=== PATIENT | female | born 1965 | race Caucasian/White ===

== ENCOUNTER 2022-05-09 16:06 | Outpatient (REF) | payer SELFPAY ==
[2022-05-09 14:45] LABS: Abs Immature Grans 0.02 10^3/uL (0.0-0.06); Absolute Basophil Count 0.04 10^3/uL (0.0-0.2); Absolute Eosinophil Count 0.18 10^3/uL (0.0-0.7); Absolute Lymphocyte Count 1.47 10^3/uL (1.2-3.4); Absolute Neutrophil Count 3.94 10^3/uL (1.2-6.7); Basophils % 0.6; Eosinophils % 2.9; HCT 40.5 % (36.0-46.0); HGB 13.7 g/dL (11.2-15.7); Immature Grans % 0.3; Lymphocytes % 23.5; MCHC 33.8 % (32.0-36.0); MCV 95 fL (80-95); MPV 11.7 fL (8.0-11.0); Monocytes % 9.6; Neutrophils % 63.1; Platelet Count 241 10^3/uL (130-400); RBC 4.28 10^6/uL (3.93-5.22); RDW 11.9 % (11.7-14.6); RDW-SD 41.5 fL; WBC 6.25 10^3/uL (4.4-10.8)
[2022-05-09 15:28] LABS: ALT 22 U/L (14-59); AST 22 U/L (15-37); Albumin 3.8 g/dL (3.4-5.0); Alkaline Phosphatase 63 U/L (46-116); Anion Gap 8.2 mmol/L (3-11); BUN 13 mg/dL (7-18); Bilirubin, Total 0.5 mg/dL (0.2-1.0); CO2 27.8 mmol/L (21.0-32.0); CREATININE 0.8 mg/dL (0.55-1.02); Calcium 9.2 mg/dL (8.5-10.1); Chloride 106 mmol/L (98-107); Glucose 95 mg/dL (74-106); Potassium 4.1 mmol/L (3.5-5.1); Sodium 142 mmol/L (136-145); Total Protein 7.1 g/dL (6.4-8.2)
[2022-05-10 11:43] LABS: IgA 205 mg/dL (85-499); Interpretation (See Note); Tissue Transglutaminase IgA <1.2 U/mL (<4.0)
== END 2022-05-09 16:07 | disposition home or self-care (01) ==
LOC: NCHCN 16:06
PROVIDERS: Visit Provider Family Medicine
DX: K52.9 Noninfective gastroenteritis and colitis, unspecified (principal)
CPT/HCPCS: 80053; 82784; 83516; 85025

== ENCOUNTER 2022-05-12 15:02 | Outpatient (REF) | payer SELFPAY ==
[2022-05-13 11:43] LABS: Campylobacter PCR Negative (Negative); Salmonella PCR Negative (Negative); Shiga Toxin PCR Negative (Negative); Shigella/Enteroinvasive Ecoli Negative (Negative)
== END 2022-05-12 15:03 | disposition home or self-care (01) ==
LOC: NCHCN 15:02
PROVIDERS: Visit Provider Family Medicine
DX: K52.9 Noninfective gastroenteritis and colitis, unspecified (principal)
CPT/HCPCS: 87329; 87505; 83630; 87177

== ENCOUNTER 2022-05-17 17:26 | Outpatient (REF) | payer SELFPAY | END 2022-05-17 17:27 | disposition home or self-care (01) | LOC: NCHCN 17:26 | PROVIDERS: PCP Family Medicine; Visit Provider Family Medicine | DX: K52.9 Noninfective gastroenteritis and colitis, unspecified (principal) | CPT/HCPCS: 87177 ==

== ENCOUNTER 2022-05-19 16:24 | Outpatient (REF) | payer SELFPAY | END 2022-05-19 16:25 | disposition home or self-care (01) | LOC: NCHCN 16:24 | PROVIDERS: PCP Family Medicine; Visit Provider Family Medicine | DX: K52.9 Noninfective gastroenteritis and colitis, unspecified (principal) | CPT/HCPCS: 87177 ==

== ENCOUNTER 2022-05-30 15:05 | Outpatient (REF) | payer SELFPAY | END 2022-05-30 15:06 | disposition home or self-care (01) | LOC: NCHCN 15:05 | PROVIDERS: PCP Family Medicine; Visit Provider Family Medicine | DX: K52.9 Noninfective gastroenteritis and colitis, unspecified (principal) | CPT/HCPCS: 84443 ==

== ENCOUNTER 2023-06-12 21:08 | Outpatient (REF) | payer MEDICAID, SELFPAY | END 2023-06-12 21:09 | disposition home or self-care (01) | LOC: LBN 21:08 | PROVIDERS: PCP Family Medicine; Visit Provider Physician Assistant | DX: L08.89 Other specified local infections of the skin and subcutaneous tissue (principal); S61.201A Unspecified open wound of left index finger without damage to nail, initial encounter | CPT/HCPCS: 87077; 87070; 87186; 87205 ==